=== PATIENT | male | born 1945 | race Caucasian/White ===

== ENCOUNTER 2017-08-28 16:59 | Emergency (ER) | payer MEDICARE ==
[~2017-08-28] VITALS: Ht 193 cm; Wt 122.0 kg
[~2017-08-28 16:59] MED LIST: ASPI-496 PO; ATOR10TA PO; CARV3.1212 PO; ESCI5TAB7 PO; LOSA25TA2 PO; OMEP-110 PO; POLY17PO5 PO; TRAM-47 PO; WARF7.5T PO
[2017-08-28] MEDS ORDERED: morphine SULFATE 10 MG/ML, 1ML IVPush ONE ×2 (18:00→19:30)
[2017-08-28] MEDS ORDERED: KETAMINE 100 MG/ML, 5ML IV ONE (18:00)
[2017-08-28] MEDS ORDERED: PROPOFOL 10 MG/ML, 20ML IVPush ONE (18:00)
[2017-08-28] MEDS ORDERED: PROPOFOL 10 MG/ML, 20ML ONE (18:03)
[2017-08-28] MEDS ORDERED: MORPHINE SULFATE 4 MG/ML, 1ML ONE ×2 (18:04→19:21)
[2017-08-28] MEDS ORDERED: KETAMINE 10 MG/ML, 20ML ONE (18:04)
[2017-08-28] MEDS ORDERED: DIPH,PERTUSS(ACELL),TET VAC/PF 0.5 ML IM-VACC ONE ×2 (18:30→19:57)
[2017-08-28 19:45] VITALS: BP 125/68
[2017-08-28] MEDS ORDERED: OXYcodone/APAP 5/325MG TABLET ONE (19:56)
[2017-08-28] MEDS ORDERED: OXYcodone/APAP 5/325MG TABLET PO ONE (20:00)
== END 2017-08-28 20:22 | disposition home or self-care (01) ==
LOC: ED 19:15
DX: S52.502A Unspecified fracture of the lower end of left radius, initial encounter for closed fracture (principal); S52.602A Unspecified fracture of lower end of left ulna, initial encounter for closed fracture; S00.01XA Abrasion of scalp, initial encounter; W19.XXXA Unspecified fall, initial encounter; Y93.89 Activity, other specified; Y92.009 Unspecified place in unspecified non-institutional (private) residence as the place of occurrence of the external cause; Y99.9 Unspecified external cause status
CPT/HCPCS: 25605; 70450; 73070; 73100; 73110; 90471; 90715; 96374; 96376; 99152; 99153; 99285; J2270; J2704

== ENCOUNTER 2017-12-25 07:03 | Day surgery (SDC) | payer MEDICARE ==
[~2017-12-25] VITALS: Ht 193 cm; Wt 116.5 kg
[2017-12-25] MEDS ORDERED: LACTATED RINGERS 1,000 ML IV SCH (07:34)
[2017-12-25 08:05] VITALS: BP 151/83
[2017-12-25] MEDS ORDERED: OMEP20TA62 PO (08:05)
[2017-12-25] MEDS ORDERED: ASPI-496 PO (08:05)
[2017-12-25] MEDS ORDERED: ESCI10TA10 PO (08:05)
[2017-12-25] MEDS ORDERED: CARV25TA12 PO (08:05)
[2017-12-25] MEDS ORDERED: LOSA50TA2 PO (08:05)
[2017-12-25] MEDS ORDERED: LEVA15HF4 INH (08:05)
[2017-12-25] MEDS ORDERED: RIVA20TA PO (08:05)
[2017-12-25] MEDS ORDERED: FLUT1BLS INH (08:05)
[2017-12-25] MEDS ORDERED: ATOR40TA78 PO (08:05)
[2017-12-25] MEDS ORDERED: PROPOFOL 10 MG/ML, 20ML ONE (09:00)
== END 2017-12-25 10:50 | disposition home or self-care (01) ==
LOC: OUT 07:03
PROVIDERS: ATTEND Internal Medicine
DX: Z12.11 Encounter for screening for malignant neoplasm of colon (principal); K63.89 Other specified diseases of intestine; I10 Essential (primary) hypertension; E78.5 Hyperlipidemia, unspecified; I25.10 Atherosclerotic heart disease of native coronary artery without angina pectoris; J44.9 Chronic obstructive pulmonary disease, unspecified; G47.33 Obstructive sleep apnea (adult) (pediatric); Z80.0 Family history of malignant neoplasm of digestive organs; Z86.711 Personal history of pulmonary embolism; Z98.890 Other specified postprocedural states; Z79.899 Other long term (current) drug therapy; Z79.82 Long term (current) use of aspirin; E66.9 Obesity, unspecified; Z68.31 Body mass index [BMI] 31.0-31.9, adult
CPT/HCPCS: 93005; G0105; J2704; J7120

== ENCOUNTER 2018-07-09 20:19 | Inpatient (IN) | payer MEDICARE ==
[~2018-07-09] VITALS: Ht 193 cm; Wt 119.0 kg
[~2018-07-09 20:19] MED LIST changes: +ATOR40TA78 PO; +CARV25TA12 PO; +ESCI10TA10 PO; +FLUT1BLS INH; +LEVA15HF4 INH; +LOSA50TA2 PO; +OMEP20TA62 PO; +RIVA20TA PO
[2018-07-09 20:46] LABS: BASOPHILS # (AUTO) 0.01 x10^3/uL (0-0.1); BASOPHILS % (AUTO) 0 % (0-1); EOSINOPHILS # (AUTO) 0.22 x10^3/uL (0-0.4); EOSINOPHILS % (AUTO) 2 % (1-7); LYMPHOCYTES # (AUTO) 0.88 x10^3/uL (1-3.4); LYMPHOCYTES % (AUTO) 9 % (22-44); MD NO; MEAN CORPUSCULAR HEMOGLOBIN 33.4 pg (27.5-34.5); MEAN CORPUSCULAR HGB CONC 33.3 g/dL (33.2-36.2); MEAN CORPUSCULAR VOLUME 100.2 fL (81-97); MEAN PLATELET VOLUME 6.8 fL (7.4-10.4); MONOCYTES # (AUTO) 0.77 x10^3/uL (0.2-0.8); MONOCYTES % (AUTO) 8 % (2-9); NEUTROPHILS # (AUTO) 8.34 x10^3/uL (1.8-6.8); NEUTROPHILS % (AUTO) 82 % (42-75); PLATELET COUNT 200 x10^3/uL (130-400); RED BLOOD COUNT 4.23 x10^6/uL (4.38-5.82); RED CELL DISTRIBUTION WIDTH 14.4 % (9.4-14.8)
[2018-07-09 20:52] LABS: CULTURE INDICATED? NO; MICROSCOPIC NOT IND
[2018-07-09 20:57] LABS: ALANINE AMINOTRANSFERASE 31 U/L (12-78); ALBUMIN 3.8 g/dL (3.4-5.0); ANION GAP 5 mmol/L (5-15); CALCIUM 8.6 mg/dL (8.5-10.1); CHLORIDE 105 mmol/L (98-107); CREATININE 1.34 mg/dL (0.7-1.3)
[2018-07-09 20:59] LABS: ALKALINE PHOSPHATASE 90 U/L (45-117); BILIRUBIN,TOTAL 0.5 mg/dL (0.2-1.0)
[2018-07-09] MEDS ORDERED: SODIUM CHLORIDE FLUSH 10ML SYR IVF ONE (21:00)
[2018-07-09] MEDS ORDERED: ONDANSETRON 2MG/ML, 2ML IVPush ONE (21:00)
[2018-07-09] MEDS ORDERED: MORPHINE SULFATE 4 MG/ML, 1ML ONE (21:09)
[2018-07-09] MEDS ORDERED: ONDANSETRON 2MG/ML, 2ML ONE (21:09)
[2018-07-09] MEDS: MORPHINE SULFATE 4 MG/ML, 1ML IVPush PRN (21:31)
--- NOTE | 2018-07-09 21:54 | NUR ---
WAS SEEN HERE YESTERDAY FOR PAIN RELATED TO OLD PAIN STIMULATOR. PAIN IS GETTING WORSE. C/O PAIN TO RIGHT SIDE OF ABD
[2018-07-10] MEDS ORDERED: MORPHINE SULFATE 4 MG/ML, 1ML ONE (00:33)
--- NOTE | 2018-07-10 00:35 | NUR ---
PO CONTRAST AT 0030, DUE FOR CT AT 0200.
[2018-07-10] MEDS: MORPHINE SULFATE 4 MG/ML, 1ML IVPush PRN (00:36)
--- NOTE | 2018-07-10 00:40 | NUR ---
REMIDICATED FOR PAIN
[2018-07-10] MEDS ORDERED: OMNIPAQUE 350 MG/ML, 100ML BOTTLE ONE (02:15)
--- NOTE | 2018-07-10 03:30 | NUR ---
AWAITING ADMIT AT THIS TIME, PT IN NAD UP TO BATHROOM
[2018-07-10 04:35] VITALS: BP 153/74
[2018-07-10] MEDS ORDERED: ONDANSETRON ODT 4 MG PO PRN (05:00)
[2018-07-10] MEDS: LACTATED RINGERS 1,000 ML IV SCH ×3 (05:17→18:05)
[2018-07-10] MEDS ORDERED: ALBUTEROL SULFATE 2.5 MG/3 ML NPPB SCH ×2 (05:30→07:00)
[2018-07-10] MEDS: KETOROLAC 30 MG/1 ML IV PRN ×3 (05:48→22:52)
[2018-07-10] MEDS: ONDANSETRON 2MG/ML, 2ML IVPush PRN ×2 (05:48→20:52)
[2018-07-10] MEDS: morphine SULFATE 10 MG/ML, 1ML IVPush PRN ×2 (05:48→20:37)
[2018-07-10 06:37] LABS: MEAN CORPUSCULAR HEMOGLOBIN 33.6 pg (27.5-34.5); MEAN CORPUSCULAR HGB CONC 33.8 g/dL (33.2-36.2); MEAN CORPUSCULAR VOLUME 99.2 fL (81-97); PLATELET COUNT 175 x10^3/uL (130-400); RED BLOOD COUNT 3.91 x10^6/uL (4.38-5.82); RED CELL DISTRIBUTION WIDTH 14.9 % (9.4-14.8)
[2018-07-10 06:41] LABS: ALBUMIN 3.4 g/dL (3.4-5.0); ANION GAP 5 mmol/L (5-15); CALCIUM 8.2 mg/dL (8.5-10.1); CHLORIDE 105 mmol/L (98-107)
[2018-07-10 06:46] LABS: ALANINE AMINOTRANSFERASE 29 U/L (12-78); ALKALINE PHOSPHATASE 83 U/L (45-117); BILIRUBIN,TOTAL 0.6 mg/dL (0.2-1.0); CREATININE 1.06 mg/dL (0.7-1.3); TOTAL PROTEIN 7.3 g/dL (6.4-8.2); TRIGLYCERIDES 53 mg/dL (50-200)
[2018-07-10 06:58] LABS: BASOPHILS % (AUTO) 0 % (0-1); EOSINOPHILS # (AUTO) 0.07 x10^3/uL (0-0.4); EOSINOPHILS % (AUTO) 1 % (1-7); LYMPHOCYTES # (AUTO) 0.77 x10^3/uL (1-3.4); LYMPHOCYTES % (AUTO) 9 % (22-44); MONOCYTES # (AUTO) 0.98 x10^3/uL (0.2-0.8); MONOCYTES % (AUTO) 11 % (2-9); NEUTROPHILS # (AUTO) 7.32 x10^3/uL (1.8-6.8); NEUTROPHILS % (AUTO) 80 % (42-75)
[2018-07-10] MEDS ORDERED: BUDESONIDE 0.5 MG/2 ML INHA NPPB SCH ×2 (07:00→09:00)
[2018-07-10 07:01] LABS: MD SCAN
[2018-07-10 07:13] VITALS: BP 133/65
[2018-07-10] MEDS: ASPIRIN 81 MG TABLET CHEW PO SCH (08:41)
[2018-07-10] MEDS: LOSARTAN 50MG TABLET PO SCH ×2 (08:42→20:38)
[2018-07-10] MEDS: OMEPRAZOLE 20 MG CAPSULE.DR PO SCH ×2 (08:42→20:52)
[2018-07-10] MEDS: CARVEDILOL 25 MG TABLET PO SCH ×2 (08:42→20:38)
[2018-07-10] MEDS: TEMPLATE NON-FORMULARY MED. (Escitalopram Oxalate** (Lexapro**) 10 MG) HOMEMEDPO SCH ×2 (08:42→14:25)
[2018-07-10] MEDS: RIVAROXABAN 20 MG TABLET PO SCH (08:43)
[2018-07-10] MEDS ORDERED: FLUTICASONE/VILANTEROL 200-25MCG/INH INH SCH (09:00)
[2018-07-10 14:11] VITALS: BP 125/69
[2018-07-10 20:24] VITALS: BP 159/83
[2018-07-11] MEDS: LACTATED RINGERS 1,000 ML IV SCH ×2 (00:16→06:00)
[2018-07-11 00:24] VITALS: BP 148/78
[2018-07-11] MEDS: KETOROLAC 30 MG/1 ML IV PRN ×2 (06:00→12:28)
[2018-07-11 06:11] LABS: BASOPHILS # (AUTO) 0.01 x10^3/uL (0-0.1); BASOPHILS % (AUTO) 0 % (0-1); EOSINOPHILS # (AUTO) 0.08 x10^3/uL (0-0.4); EOSINOPHILS % (AUTO) 1 % (1-7); LYMPHOCYTES # (AUTO) 0.74 x10^3/uL (1-3.4); LYMPHOCYTES % (AUTO) 10 % (22-44); MD NO; MEAN CORPUSCULAR HEMOGLOBIN 33.5 pg (27.5-34.5); MEAN CORPUSCULAR HGB CONC 33.5 g/dL (33.2-36.2); MEAN PLATELET VOLUME 7.2 fL (7.4-10.4); MONOCYTES # (AUTO) 0.84 x10^3/uL (0.2-0.8); MONOCYTES % (AUTO) 12 % (2-9); NEUTROPHILS # (AUTO) 5.61 x10^3/uL (1.8-6.8); NEUTROPHILS % (AUTO) 77 % (42-75); PLATELET COUNT 169 x10^3/uL (130-400); RED BLOOD COUNT 3.59 x10^6/uL (4.38-5.82); RED CELL DISTRIBUTION WIDTH 14.2 % (9.4-14.8)
[2018-07-11 06:18] LABS: CHLORIDE 105 mmol/L (98-107)
[2018-07-11 06:25] LABS: ALANINE AMINOTRANSFERASE 22 U/L (12-78); ALKALINE PHOSPHATASE 74 U/L (45-117); ANION GAP 7 mmol/L (5-15); BILIRUBIN,TOTAL 0.8 mg/dL (0.2-1.0); CALCIUM 8.3 mg/dL (8.5-10.1); CREATININE 1.04 mg/dL (0.7-1.3)
[2018-07-11 06:50] VITALS: BP 145/72
[2018-07-11] MEDS: TEMPLATE NON-FORMULARY MED. (Escitalopram Oxalate** (Lexapro**) 10 MG) HOMEMEDPO SCH (09:00)
[2018-07-11] MEDS: ASPIRIN 81 MG TABLET CHEW PO SCH (09:23)
[2018-07-11] MEDS: OMEPRAZOLE 20 MG CAPSULE.DR PO SCH (09:23)
[2018-07-11] MEDS: RIVAROXABAN 20 MG TABLET PO SCH (09:23)
[2018-07-11] MEDS: CARVEDILOL 25 MG TABLET PO SCH (09:23)
[2018-07-11] MEDS: LOSARTAN 50MG TABLET PO SCH (09:23)
[2018-07-11 12:31] VITALS: BP 147/78
== END 2018-07-11 13:35 | disposition home or self-care (01) | DRG 682 ==
LOC: ED 22:40 → EDIP 07-10 03:34 → 4NOR 07-10 04:31 → DCLOUNGE 07-11 13:26
PROVIDERS: ADMIT Hospitalist; ATTEND Hospitalist
PROC: 5A09357 Assistance with Respiratory Ventilation, Less than 24 Consecutive Hours, Continuous Positive Airway Pressure (ICD-10-PCS; principal; 2018-07-10)
PROC: 5A09357 Assistance with Respiratory Ventilation, Less than 24 Consecutive Hours, Continuous Positive Airway Pressure (ICD-10-PCS; 2018-07-11)
DX: N17.9 Acute kidney failure, unspecified (principal); K85.00 Idiopathic acute pancreatitis without necrosis or infection; D64.9 Anemia, unspecified; F10.20 Alcohol dependence, uncomplicated; R16.0 Hepatomegaly, not elsewhere classified; K76.0 Fatty (change of) liver, not elsewhere classified; E66.9 Obesity, unspecified; K44.9 Diaphragmatic hernia without obstruction or gangrene; K57.10 Diverticulosis of small intestine without perforation or abscess without bleeding; N28.1 Cyst of kidney, acquired; E78.1 Pure hyperglyceridemia; I10 Essential (primary) hypertension; I25.10 Atherosclerotic heart disease of native coronary artery without angina pectoris; I25.2 Old myocardial infarction; Z86.711 Personal history of pulmonary embolism; Z86.72 Personal history of thrombophlebitis
CPT/HCPCS: 36415; 74177; 76700; 80053; 81003; 83690; 83735; 84100; 84478; 85025; 94640; 96374; 96375; 96376; G0378; J1885; J2405; J7613; J7626; Q9967; J2270; J7120

== ENCOUNTER 2020-05-25 06:34 | Day surgery (SDC) | payer MEDICARE ==
[~2020-05-25] VITALS: Ht 193 cm; Wt 114.0 kg
[~2020-05-25 06:34] MED LIST changes: +AMLO2.5T2 PO
[2020-05-25 08:09] VITALS: BP 163/79
[2020-05-25] MEDS ORDERED: CHLORHEXIDINE 15 ML UDC ONE (08:14)
[2020-05-25] MEDS ORDERED: CHLORHEXIDINE 15 ML UDC MM ONE (08:30)
[2020-05-25] MEDS ORDERED: LACTATED RINGERS 1,000 ML IV SCH (08:30)
[2020-05-25] MEDS ORDERED: PROPOFOL 10 MG/ML, 50ML ONE (08:42)
[2020-05-25] MEDS ORDERED: LABETALOL 5MG/ML, 20ML IV PRN (09:00)
[2020-05-25] MEDS ORDERED: DIAZEPAM 5 MG/ML, 2ML IVPush PRN (09:00)
[2020-05-25] MEDS ORDERED: ACETAMINOPHEN 325 MG TABLET PO PRN (09:00)
[2020-05-25] MEDS ORDERED: EPHEDRINE 50 MG/ML, 1ML IM PRN (09:00)
[2020-05-25] MEDS ORDERED: ONDANSETRON 2MG/ML, 2ML IVPush PRN (09:00)
[2020-05-25] MEDS ORDERED: EPHEDRINE 50 MG/ML, 1ML IVPush PRN (09:00)
[2020-05-25] MEDS ORDERED: FENTANYL PF 100 MCG/2ML IV PRN (09:00)
[2020-05-25] MEDS ORDERED: DIPHENHYDRAMINE 50 MG/ML, 1ML IVPush PRN (09:00)
[2020-05-25] MEDS ORDERED: PROMETHAZINE 25 MG/ML, 1ML IVPush PRN (09:00)
== END 2020-05-25 10:40 | disposition home or self-care (01) ==
LOC: OUT 06:34
PROVIDERS: ATTEND Internal Medicine
DX: Z12.11 Encounter for screening for malignant neoplasm of colon (principal); D12.4 Benign neoplasm of descending colon; I10 Essential (primary) hypertension; Z80.0 Family history of malignant neoplasm of digestive organs
CPT/HCPCS: 45380; 88305; J2704; J7120